=== PATIENT | male | born 1990 | race Caucasian/White ===

== ENCOUNTER 2023-03-26 13:51 | Observation (INO) | payer OTHER ==
[~2023-03-26] VITALS: Ht 172.7 cm; Wt 81.6 kg
[2023-03-26] MEDS ORDERED: LR 1,000 ML IV SCH (14:45)
[2023-03-26] MEDS ORDERED: ceFAZolin SOD 2 GM in IV 1 EA IV ONE (15:00)
[2023-03-26] MEDS ORDERED: TRANEXAMIC ACID 100 MG/ML 10ML VIAL IV ONE (15:00)
[2023-03-26] MEDS ORDERED: ONDANSETRON 4MG 2ML VIAL As Ordered ONE ×2 (15:29→17:50)
[2023-03-26] MEDS ORDERED: ROCURONIUM BROMIDE 50MG/5ML VIAL As Ordered ONE ×2 (15:29→15:49)
[2023-03-26] MEDS ORDERED: METOCLOPRAMIDE INJ 10MG/2ML VIAL As Ordered ONE (15:29)
[2023-03-26] MEDS ORDERED: LIDOCAINE 2% 100MG/5ML SDV (FOR ANES.) As Ordered ONE (15:29)
[2023-03-26] MEDS ORDERED: MIDAZOLAM INJ 2MG/2ML VIAL As Ordered ONE (15:29)
[2023-03-26] MEDS ORDERED: SUGAMMADEX SODIUM 500 MG/5 ML VIAL (BRIDION) As Ordered ONE (15:29)
[2023-03-26] MEDS ORDERED: fentaNYL 250 MCG/5 ML INJECTION As Ordered ONE (15:29)
[2023-03-26] MEDS ORDERED: propofoL 200 MG/20 ML VIAL As Ordered ONE (15:29)
[2023-03-26] MEDS ORDERED: TRANEXAMIC ACID 100 MG/ML 10ML VIAL As Ordered ONE (15:32)
[2023-03-26] MEDS ORDERED: ceFAZolin 2 GM/D5W 50 ML IV BAG As Ordered ONE (15:32)
[2023-03-26] MEDS ORDERED: ACETAMINOPHEN 1000MG 100ML IV BAG As Ordered ONE (15:45)
[2023-03-26] MEDS ORDERED: HYDROmorphone HCL 2MG/ML 1ML VIAL As Ordered ONE (16:07)
[2023-03-26] MEDS ORDERED: VANCOMYCIN 1000MG/20ML VIAL As Ordered ONE (16:46)
[2023-03-26] MEDS ORDERED: fentaNYL 100 MCG/2 ML INJECTION As Ordered ONE (17:50)
[2023-03-26] MEDS ORDERED: ONDANSETRON 4MG 2ML VIAL IV PRN ×2 (17:50→21:25)
[2023-03-26] MEDS ORDERED: MEPERIDINE 25 MG/ML 1ML VIAL IV PRN (17:50)
[2023-03-26] MEDS: fentaNYL 100 MCG/2 ML INJECTION IV PRN ×4 (17:53→18:15)
[2023-03-26] MEDS: oxyCODONE 5MG TAB PO PRN ×2 (18:04→18:56)
[2023-03-26] MEDS: HYDROMORPHONE HCL 0.5 MG/ 0.5 ML SYRINGE IV PRN ×4 (18:11→18:34)
[2023-03-26 20:19] VITALS: BP 133/61; TEMP 97.4; O2SAT 99
[2023-03-26 20:40] VITALS: BP 147/60; TEMP 97.3; O2SAT 100
[2023-03-26] MEDS ORDERED: MOM 30ML SUSPENSION UDC PO PRN (21:25)
[2023-03-26] MEDS ORDERED: ACETAMINOPHEN TAB 650MG DOSE (2X325MG) PO PRN (21:25)
[2023-03-26 21:40] VITALS: BP 123/68; TEMP 98.3; O2SAT 100
[2023-03-26 22:40] VITALS: BP 118/55; TEMP 98; O2SAT 98
[2023-03-26] MEDS: PERCOCET 5MG/325MG TAB PO PRN (23:17)
[2023-03-26 23:40] VITALS: BP 104/63; TEMP 98.6; O2SAT 99
[2023-03-27] MEDS ORDERED: ASPI-161 PO (00:09)
[2023-03-27] MEDS ORDERED: CELE1CAP4 PO (00:09)
[2023-03-27] MEDS ORDERED: DOCU100C16 PO (00:09)
[2023-03-27] MEDS ORDERED: OXYC-517 PO (00:09)
[2023-03-27] MEDS ORDERED: NARC1SPR (00:09)
[2023-03-27] MEDS ORDERED: ONDA4TAB6 PO (00:09)
[2023-03-27] MEDS ORDERED: HOME MED LIST COMPLETE! XX SCH (00:10)
[2023-03-27 00:45] VITALS: BP 114/57; TEMP 98; O2SAT 100
[2023-03-27] MEDS: KETOROLAC 30 MG/ML 1ML VIAL IV PRN ×3 (02:48→16:00)
[2023-03-27 05:00] VITALS: BP 116/53; TEMP 98.1; O2SAT 98
[2023-03-27 06:15] LABS: HEMOGLOBIN 13.2 g/dl (13.5-17.5); MEAN CORPUSCULAR HEMOGLOBIN 28.3 pg (27.0-33.0); MEAN CORPUSCULAR HGB CONC 32.2 g/dl (32.0-36.5); MEAN CORPUSCULAR VOLUME 87.8 fl (80.0-96.0); PLATELET COUNT, AUTOMATED 269 10^3/uL (150-450); RED BLOOD COUNT 4.67 10^6/uL (4.30-6.10); WHITE BLOOD COUNT 12.2 10^3/uL (4.0-10.0)
[2023-03-27 06:43] LABS: BLOOD UREA NITROGEN 15 MG/DL (9-23); CALCIUM LEVEL 8.8 MG/DL (8.5-10.1); CARBON DIOXIDE LEVEL 29 MMOL/L (20-31); CHLORIDE LEVEL 101 MMOL/L (98-107); CREATININE FOR GFR 0.98 MG/DL (0.70-1.30); GLOMERULAR FILTRATION RATE > 60.0 (>60); GLUCOSE, FASTING 163 MG/DL (60-100); MAGNESIUM LEVEL 1.8 MG/DL (1.8-2.4); POTASSIUM SERUM 4.3 MMOL/L (3.5-5.1); SODIUM LEVEL 138 MMOL/L (136-145)
[2023-03-27 07:09] VITALS: O2SAT 100
[2023-03-27] MEDS ORDERED: DOCUSATE SODIUM 100MG CAPSULE PO SCH (09:00)
[2023-03-27] MEDS: PERCOCET 5MG/325MG TAB PO PRN ×2 (09:09→12:49)
[2023-03-27 09:55] VITALS: BP 135/57; TEMP 97.3; O2SAT 97
[2023-03-27] MEDS ORDERED: ASPI81TA26 PO (10:53)
[2023-03-27] MEDS ORDERED: PERCOCET PO (10:53)
[2023-03-27] MEDS ORDERED: COLA100C5 PO (10:53)
[2023-03-27 13:32] VITALS: BP 126/55; TEMP 97.1; O2SAT 97
== END 2023-03-27 16:30 | disposition home or self-care (01) ==
LOC: M SDC 13:51 → UNDOADMOB 18:25 → M ED INP 18:25 → M MS4PR 18:26
PROVIDERS: ADMIT Orthopaedic Surgery; ATTEND Orthopaedic Surgery
DX: M84.361A Stress fracture, right tibia, initial encounter for fracture (principal); M76.61 Achilles tendinitis, right leg; Z87.891 Personal history of nicotine dependence
CPT/HCPCS: 27759; 36415; 76000; 80048; 83735; 85027; 96374; 96375; 96376; 97530; C1713; C1769; J0131; J0690; J1100; J1170; J1885; J2250; J2405; J2765; J3010